=== PATIENT | female | born 1955 | race African-American/Black ===

== ENCOUNTER 2017-10-14 20:37 | Emergency (ER) | payer OTHER ==
--- NOTE | 2017-10-14 22:10 | ER ---
Nurse's Notes [facility] Name: Scooter Cavazos Age: 62 yrs Sex: Female : 1955 Arrival Date: 10/14/2017 Time: 20:40 Bed 19 Private MD: Damián Fragoso E Diagnosis: Rash and other nonspecific skin eruption Presentation: 10/14 20:49 Presenting complaint: Patient states: Reports itchy rash for 3 days. "I had scabies aj before and that's what I think it is. They gave me a pill last time.". Transition of care: patient was not received from another setting of care. Onset: The symptoms/episode began/occurred 3 day(s) ago. Anaphylaxis evaluation, no signs or symptoms of anaphylaxis were noted. Onset of symptoms was October 11, 2017. Risk Assessment: Do you want to hurt yourself or someone else? Patient reports no desire to harm self or others. Initial Sepsis Screen: Does the patient meet any 2 criteria? No. Patient's initial sepsis screen is negative. Does the patient have a suspected source of infection? No. Patient's initial sepsis screen is negative. Care prior to arrival: None. 20:49 Method Of Arrival: Ambulatory aj 20:49 Acuity: CHRIS 5 aj Triage Assessment: 20:51 General: Appears in no apparent distress. uncomfortable, Behavior is calm, cooperative, aj appropriate for age. Pain: Denies pain. Neuro: Level of Consciousness is awake, alert, obeys commands, Oriented to person, place, time, situation, Appropriate for age. Respiratory: Airway is patent Respiratory effort is even, unlabored, Respiratory pattern is regular, symmetrical. Derm: Skin is intact, is healthy with good turgor, Skin is pink, warm \\T\\ dry. normal, Rash noted that is itchy, on abdomen and right arm. Historical: - Allergies: 20:51 No Known Allergies; aj - Home Meds: 20:51 levothyroxine oral [Active]; Metformin Oral [Active]; gabapentin oral oral [Active]; aj - PMHx: 20:51 Diabetes - NIDDM; Hypothyroidism; aj - PSHx: 20:51 Cholecystectomy; Tubal ligation; aj - Immunization history:: Adult Immunizations up to date. - Social history:: Smoking status: Patient/guardian denies using tobacco. - Ebola Screening: : Patient negative for fever greater than or equal to 101.5 degrees Fahrenheit, and additional compatible Ebola Virus Disease symptoms Patient denies exposure to infectious person Patient denies travel to an Ebola-affected area in the 21 days before illness onset No symptoms or risks identified at this time. Screenin:33 Abuse screen: Denies threats or abuse. Denies injuries from another. Nutritional rv screening: No deficits noted. Tuberculosis screening: No symptoms or risk factors identified. Fall Risk None identified. Assessment: 21:30 General: Appears in no apparent distress. comfortable, Behavior is calm, cooperative. rv Pain: Denies pain. Neuro: Level of Consciousness is awake, alert, obeys commands, Oriented to person, place, time, situation. Cardiovascular: Capillary refill < 3 seconds. Respiratory: Airway is patent Breath sounds are clear bilaterally. GI: No signs and/or symptoms were reported involving the gastrointestinal system. : No signs and/or symptoms were reported regarding the genitourinary system. EENT: No signs and/or symptoms were reported regarding the EENT system. Derm: Rash noted that is itchy. Musculoskeletal: No signs and/or symptoms reported regarding the musculoskeletal system. Vital Signs: 20:51 BP 134 / 59; Pulse 78; Resp 16; Temp 97.2; Pulse Ox 98% on R/A; Weight 122.47 kg; aj Height 5 ft. 9 in. (175.26 cm); 21:31 BP 138 / 76; Pulse 72; Resp 16; Pulse Ox 99% on R/A; rv 20:51 Body Mass Index 39.87 (122.47 kg, 175.26 cm) aj ED Course: 20:40 Patient arrived in ED. es 20:40 Damián Fragoso MD is Private Physician. es 20:50 Triage completed. aj 20:52 Arm band placed on left wrist. Patient placed in an exam room, on a stretcher. aj 21:05 Valdemar Molina NP is PHCP. pm1 21:05 Obinna Durbin MD is Attending Physician. pm1 21:33 Patient has correct armband on for positive identification. Bed in low position. Call rv light in reach. Side rails up X 1. Adult w/ patient. Pulse ox on. NIBP on. 22:24 No provider procedures requiring assistance completed. Patient did not have IV access rv during this emergency room visit. Administered Medications: 22:15 Drug: Benadryl 25 mg Route: PO; rv 22:24 Follow up: Response: Medication administered at discharge. rv Outcome: : Discharge ordered by . pm1 : Discharged to home ambulatory. rv : Condition: good 22:25 Discharge instructions given to patient, Instructed on discharge instructions, medication usage. 22:25 Patient left the ED. rv Signatures: Ade Tobias, RN RN Edita Carmona Patrick, NP AUTOMOTIVE REFINISHER pm1 Loki Dotson RN RN rv
--- NOTE | 2017-10-14 22:10 | EDPHYS ---
Physician Documentation [facility] Name: Scooter Cavazos Age: 62 yrs Sex: Female : 1955 Arrival Date: 10/14/2017 Time: 20:40 Bed 19 Private MD: Damián Fragoso E ED Physician Obinna Durbin HPI: 10/14 22:00 This 62 yrs old Black Female presents to ER via Ambulatory with complaints of Itching. pm1 22:00 Onset: The symptoms/episode began/occurred yesterday. Associated signs and symptoms: pm1 Pertinent negatives: chest pain, dysuria, fever, shortness of breath, sore throat. Modifying factors: The patient symptoms are alleviated by nothing, the patient symptoms are aggravated by nothing. The patient has experienced a previous episode, many years ago, Similar to prior scabies dx. The patient has not recently seen a physician. Historical: - Allergies: 20:51 No Known Allergies; aj - Home Meds: 20:51 levothyroxine oral [Active]; Metformin Oral [Active]; gabapentin oral oral [Active]; aj - PMHx: 20:51 Diabetes - NIDDM; Hypothyroidism; aj - PSHx: 20:51 Cholecystectomy; Tubal ligation; aj - Immunization history:: Adult Immunizations up to date. - Social history:: Smoking status: Patient/guardian denies using tobacco. - Ebola Screening: : Patient negative for fever greater than or equal to 101.5 degrees Fahrenheit, and additional compatible Ebola Virus Disease symptoms Patient denies exposure to infectious person Patient denies travel to an Ebola-affected area in the 21 days before illness onset No symptoms or risks identified at this time. ROS: 22:00 Constitutional: Negative for fever, chills, and weight loss, Eyes: Negative for injury, pm1 pain, redness, and discharge, ENT: Negative for injury, pain, and discharge, Neck: Negative for injury, pain, and swelling, Cardiovascular: Negative for chest pain, palpitations, and edema, Respiratory: Negative for shortness of breath, cough, wheezing, and pleuritic chest pain, Abdomen/GI: Negative for abdominal pain, nausea, vomiting, diarrhea, and constipation, Back: Negative for injury and pain, : Negative for injury, bleeding, discharge, and swelling, MS/Extremity: Negative for injury and deformity. 22:00 Neuro: Negative for headache, weakness, numbness, tingling, and seizure. 22:00 Skin: Positive for Itchiness and rash on right arm. Exam: 22:00 Constitutional: This is a well developed, well nourished patient who is awake, alert, pm1 and in no acute distress. Head/Face: Normocephalic, atraumatic. Neck: Trachea midline, no thyromegaly or masses palpated, and no cervical lymphadenopathy. Supple, full range of motion without nuchal rigidity, or vertebral point tenderness. No Meningismus. Chest/axilla: Normal chest wall appearance and motion. Nontender with no deformity. No lesions are appreciated. Cardiovascular: Regular rate and rhythm with a normal S1 and S2. No gallops, murmurs, or rubs. Normal PMI, no JVD. No pulse deficits. Respiratory: Lungs have equal breath sounds bilaterally, clear to auscultation and percussion. No rales, rhonchi or wheezes noted. No increased work of breathing, no retractions or nasal flaring. Abdomen/GI: Soft, non-tender, with normal bowel sounds. No distension or tympany. No guarding or rebound. No evidence of tenderness throughout. Back: No spinal tenderness. No costovertebral tenderness. Full range of motion. 22:00 Skin: Appearance: normal except for affected area, consistent with scabies. Vital Signs: 20:51 BP 134 / 59; Pulse 78; Resp 16; Temp 97.2; Pulse Ox 98% on R/A; Weight 122.47 kg; aj Height 5 ft. 9 in. (175.26 cm); 21:31 BP 138 / 76; Pulse 72; Resp 16; Pulse Ox 99% on R/A; rv 20:51 Body Mass Index 39.87 (122.47 kg, 175.26 cm) aj MDM: 21:06 Patient medically screened. pm1 22:09 Data reviewed: vital signs. Data interpreted: Pulse oximetry: on room air is 99 %. pm1 Interpretation: normal. Counseling: I had a detailed discussion with the patient and/or guardian regarding: the historical points, exam findings, and any diagnostic results supporting the discharge/admit diagnosis, the need for outpatient follow up, to return to the emergency department if symptoms worsen or persist or if there are any questions or concerns that arise at home. Administered Medications: 22:15 Drug: Benadryl 25 mg Route: PO; rv 22:24 Follow up: Response: Medication administered at discharge. rv Disposition: 10/15 19:02 Co-signature as Attending Physician, Obinna Durbin MD. Disposition: 10/14/17 22:09 Discharged to Home. Impression: Rash and other nonspecific skin eruption. - Condition is Stable. - Discharge Instructions: Rash. - Prescriptions for Elimite 5 % Topical Cream - apply 1 application by TOPICAL route one time Wash after 12 hours.; 60 gram. Bactrim DS 800- 160 mg Oral Tablet - take 1 tablet by ORAL route every 12 hours for 10 days; 20 tablet. - Medication Reconciliation Form, Thank You Letter, Antibiotic Education form. - Follow up: Emergency Department; When: As needed; Reason: Worsening of condition. Follow up: Private Physician; When: 2 - 3 days; Reason: Recheck today's complaints, Continuance of care, Re-evaluation by your physician. - Problem is new. - Symptoms have improved. Signatures: Ade Tobias RN RN Valdemar Upton, TELEGRAPH OPERATOR TELEGRAPH OPERATOR pm1 Obinna Durbin MD MD Loki Dotson RN RN Corrections: (The following items were deleted from the chart) 10/14 22:25 22:09 10/14/2017 22:09 Discharged to Home. Impression: Rash and other nonspecific skin rv eruption. Condition is Stable. Forms are Medication Reconciliation Form, Thank You Letter, Antibiotic Education, Prescription Opioid Use. Follow up: Emergency Department; When: As needed; Reason: Worsening of condition. Follow up: Private Physician; When: 2 - 3 days; Reason: Recheck today's complaints, Continuance of care, Re-evaluation by your physician. Problem is new. Symptoms have improved. pm1
[2017-10-14] MEDS ORDERED: DIPHENHYDRAMINE 25 MG TAB/CAP ONE (22:17)
== END 2017-10-14 22:25 | disposition home or self-care (01) ==
LOC: ER 20:37
DX: R21 Rash and other nonspecific skin eruption (principal); E03.9 Hypothyroidism, unspecified; E11.9 Type 2 diabetes mellitus without complications; Z79.84 Long term (current) use of oral hypoglycemic drugs
CPT/HCPCS: 99283

== ENCOUNTER 2019-02-01 14:29 | Emergency (ER) | payer OTHER ==
[2019-02-01] MEDS ORDERED: FENTANYL CITR 100 MCG/2 ML ONE (16:07)
[2019-02-01 16:20] LABS: Protime INR 1.02
[2019-02-01 16:23] LABS: Absolute Lymphocytes (CBC) 1.1 K/uL (0.7-4.9); Basophils % 0.9 % (0-1.3); Lymphocytes % 16.2 % (15.3-44.8); MPV 9.6 fL (7.6-11.3)
[2019-02-01 16:37] LABS: ALT/SGPT 13 U/L (12-78); AST/SGOT 14 U/L (15-37); Albumin 3.5 g/dL (3.4-5.0); Alkaline Phosphatase 125 U/L (45-117); BUN Blood Urea Nitrogen 20 mg/dL (7-18); Bicarbonate 25 mmol/L (21-32); Bilirubin Direct < 0.1 mg/dL (0-0.2); Bilirubin Total 0.3 mg/dL (0.2-1.0); Glucose Level 233 mg/dL (74-106); Magnesium 1.9 mg/dL (1.8-2.4); NT PRO-BNP 124 pg/mL (<125); Potassium 4.4 mmol/L (3.5-5.1); Protein, Total 7.5 g/dL (6.4-8.2); Sodium Level 139 mmol/L (136-145); Troponin (Emerg Dept Use Only) < 0.02 ng/mL (0.0-0.045)
--- NOTE | 2019-02-01 16:48 | EDPHYS ---
Physician Documentation [facility] Name: Scooter Cavazos Age: 63 yrs Sex: Female : 1955 Arrival Date: 02/01/2019 Time: 14:32 Bed 5 Private MD: ED Physician Nirav Guzmán HPI: 02/01 15:17 This 63 yrs old Black Female presents to ER via Ambulatory with complaints of Shoulder jr8 Pain, Chest Wall Pain. 15:17 Associated signs and symptoms: Pertinent negatives: abdominal pain, diaphoresis, jr8 shortness of breath. Severity of symptoms: At their worst the symptoms were moderate, in the emergency department the symptoms are unchanged. Pt reports right shoulder and right sided chest pain for the last 3-4 days which has been worsening in severity, denies SOB. Historical: - Allergies: 14:37 No Known Allergies; aa5 - Home Meds: 14:37 levothyroxine oral [Active]; Metformin Oral [Active]; aa5 14:47 gabapentin Oral [Active]; tw2 - PMHx: 14:37 Diabetes - NIDDM; Hypothyroidism; aa5 - PSHx: 14:37 Cholecystectomy; Tubal ligation; aa5 - Immunization history:: Flu vaccine is up to date. - Social history:: Smoking status: Patient uses tobacco products, smokes one-half pack cigarettes per day. - Ebola Screening: : No symptoms or risks identified at this time. ROS: 15:17 Constitutional: Negative for fever, chills, and weight loss, Eyes: Negative for injury, jr8 pain, redness, and discharge, ENT: Negative for injury, pain, and discharge, Neck: Negative for injury, pain, and swelling, Abdomen/GI: Negative for abdominal pain, nausea, vomiting, diarrhea, and constipation, MS/Extremity: Negative for injury and deformity, Neuro: Negative for headache, weakness, numbness, tingling, and seizure. 15:17 Cardiovascular: Positive for chest pain, Negative for edema, orthopnea, palpitations. Exam: 15:19 Constitutional: This is a well developed, well nourished patient who is awake, alert, jr8 and in no acute distress. Head/Face: Normocephalic, atraumatic. Eyes: Pupils equal round and reactive to light, extra-ocular motions intact. Lids and lashes normal. Conjunctiva and sclera are non-icteric and not injected. Cornea within normal limits. Periorbital areas with no swelling, redness, or edema. ENT: Nares patent. No nasal discharge, no septal abnormalities noted. Tympanic membranes are normal and external auditory canals are clear. Oropharynx with no redness, swelling, or masses, exudates, or evidence of obstruction, uvula midline. Mucous membranes moist. Neck: Trachea midline, no thyromegaly or masses palpated, and no cervical lymphadenopathy. Supple, full range of motion without nuchal rigidity, or vertebral point tenderness. No Meningismus. Chest/axilla: Normal chest wall appearance and motion. Nontender with no deformity. No lesions are appreciated. Cardiovascular: Regular rate and rhythm with a normal S1 and S2. No gallops, murmurs, or rubs. Normal PMI, no JVD. No pulse deficits. Respiratory: Lungs have equal breath sounds bilaterally, clear to auscultation. No rales, rhonchi or wheezes noted. No increased work of breathing, no retractions or nasal flaring. Abdomen/GI: Soft, non-tender, with normal bowel sounds. No distension or tympany. No guarding or rebound. No evidence of tenderness throughout. Back: No spinal tenderness. No costovertebral tenderness. Full range of motion. MS/ Extremity: Pulses equal, no cyanosis. Neurovascular intact. Full, normal range of motion. Neuro: Awake and alert, GCS 15, oriented to person, place, time, and situation. Cranial nerves II-XII grossly intact. Motor strength 5/5 in all extremities. Sensory grossly intact. Cerebellar exam normal. Normal gait. Vital Signs: 14:37 BP 146 / 80; Pulse 84; Resp 18 S; Temp 97.4(TE); Pulse Ox 100% on R/A; Pain 10/10; aa5 15:40 BP 122 / 78; Pulse 75; Resp 17; Pulse Ox 96% on R/A; tw2 16:17 BP 122 / 84; Pulse 70; Resp 14; Temp 98.4; Pulse Ox 99% on R/A; Pain 10/10; ch 16:54 BP 131 / 85; Pulse 66; Resp 12; Pulse Ox 98% on R/A; tw2 MDM: 14:50 Patient medically screened. 8 16:46 Data reviewed: vital signs, nurses notes, lab test result(s), EKG, radiologic studies, jr8 plain films. Data interpreted: Pulse oximetry: on room air is 99 %. Interpretation: normal. Counseling: I had a detailed discussion with the patient and/or guardian regarding: the historical points, exam findings, and any diagnostic results supporting the discharge/admit diagnosis, lab results, radiology results, the need for outpatient follow up, a family practitioner, to return to the emergency department if symptoms worsen or persist or if there are any questions or concerns that arise at home. ED course: Patient doing well. No findings on imagine, ekg, or labs to suggest impending or past OR. All pain completely reproducible on exam. Wells score negative. Will try OTC medications to see how patient does. Return precautions given . 02/01 15:15 Order name: Basic Metabolic Panel; Complete Time: 16:40 02/01 15:15 Order name: CBC with Diff; Complete Time: 16:40 02/01 15:15 Order name: LFT's; Complete Time: 16:40 02/01 15:15 Order name: Magnesium; Complete Time: 16:40 02/01 15:15 Order name: NT PRO-BNP; Complete Time: 16:40 02/01 15:15 Order name: PT-INR; Complete Time: 16:40 02/01 15:15 Order name: Troponin (emerg Dept Use Only); Complete Time: 16:40 02/01 15:15 Order name: XRAY Chest (1 view) 02/01 15:15 Order name: EKG; Complete Time: 15:17 02/01 15:15 Order name: Cardiac monitoring; Complete Time: 16:18 02/01 15:15 Order name: EKG - Nurse/Tech; Complete Time: 16:18 02/01 15:15 Order name: IV Saline Lock; Complete Time: 16:18 02/01 15:15 Order name: Labs collected and sent; Complete Time: 16:18 02/01 15:15 Order name: O2 Per Protocol; Complete Time: 16:19 02/01 15:15 Order name: O2 Sat Monitoring; Complete Time: 16:19 Administered Medications: 16:18 Drug: fentaNYL (PF) 25 mcg Route: IVP; Site: right antecubital; 16:55 Follow up: Response: No adverse reaction; Pain is decreased; RASS: Alert and Calm (0) tw2 Disposition: 02/02 07:39 Co-signature as Attending Physician, Nirav Guzmán MD I agree with the assessment and maribeth plan of care. Disposition: 02/01/19 16:47 Discharged to Home. Impression: Myalgia, Other chest pain. - Condition is Stable. - Discharge Instructions: Nonspecific Chest Pain, Chest Wall Pain, Muscle Pain, Adult. - Medication Reconciliation Form, Thank You Letter, Antibiotic Education, Prescription Opioid Use form. - Follow up: Private Physician; When: 2 - 3 days; Reason: Recheck today's complaints, Continuance of care, Re-evaluation by your physician. - Problem is new. - Symptoms have improved. - Notes: Heating pad as needed over the counter lidoderm patches as needed Tylenol for pain NO NSAID BASED PRODUCTS Signatures: Dispatcher [employer] EDMS Stephany Hadley RN RN ch Anderson, Corey, MD MD cha Calderon, Audri RN RN aa5 Clemente Jones PA PA jr8 Lise James RN RN tw2 Corrections: (The following items were deleted from the chart) 02/01 16:47 16:47 02/01/2019 16:47 Discharged to Home. Impression: Myalgia. Condition is Stable. jr8 Forms are Medication Reconciliation Form, Thank You Letter, Antibiotic Education, Prescription Opioid Use. Follow up: Private Physician; When: 2 - 3 days; Reason: Recheck today's complaints, Continuance of care, Re-evaluation by your physician. Problem is new. Symptoms have improved. jr8 17:00 16:47 02/01/2019 16:47 Discharged to Home. Impression: Myalgia; Other chest pain. tw2 Condition is Stable. Forms are Medication Reconciliation Form, Thank You Letter, Antibiotic Education, Prescription Opioid Use. Follow up: Private Physician; When: 2 - 3 days; Reason: Recheck today's complaints, Continuance of care, Re-evaluation by your physician. Problem is new. Symptoms have improved. jr8
--- NOTE | 2019-02-01 16:48 | ER ---
Nurse's Notes [facility] Name: Scooter Cavazos Age: 63 yrs Sex: Female : 1955 Arrival Date: 02/01/2019 Time: 14:32 Bed 5 Private MD: Diagnosis: Myalgia;Other chest pain Presentation: 02/01 14:35 Presenting complaint: Patient states: right shoulder pain radiating to right side of aa5 chest that began 2-3 days ago. Pt denies injury. Transition of care: patient was not received from another setting of care. Onset of symptoms was January 2019. Risk Assessment: Do you want to hurt yourself or someone else? Patient reports no desire to harm self or others. Initial Sepsis Screen: Does the patient meet any 2 criteria? No. Patient's initial sepsis screen is negative. Does the patient have a suspected source of infection? No. Patient's initial sepsis screen is negative. Care prior to arrival: None. 14:35 Acuity: CHRIS 3 aa5 14:35 Method Of Arrival: Ambulatory aa5 Historical: - Allergies: 14:37 No Known Allergies; aa5 - Home Meds: 14:37 levothyroxine oral [Active]; Metformin Oral [Active]; aa5 14:47 gabapentin Oral [Active]; tw2 - PMHx: 14:37 Diabetes - NIDDM; Hypothyroidism; aa5 - PSHx: 14:37 Cholecystectomy; Tubal ligation; aa5 - Immunization history:: Flu vaccine is up to date. - Social history:: Smoking status: Patient uses tobacco products, smokes one-half pack cigarettes per day. - Ebola Screening: : No symptoms or risks identified at this time. Screenin:45 Abuse screen: Denies threats or abuse. Nutritional screening: No deficits noted. tw2 Tuberculosis screening: No symptoms or risk factors identified. Fall Risk None identified. Assessment: 14:46 Pain: Pain does not radiate. Pain began 2-3 days ago. Cardiovascular: Reports chest tw2 wall pain. 14:53 General: Appears in no apparent distress. obese, well groomed, Behavior is calm, tw2 cooperative, appropriate for age, pt states "oh i hope they dont want to do blood work or anything, i know i am not having a heart attack or anything, [place] in [place] it was really cold but i am having pain in my right upper chest and shoulder area". Pain: Complains of pain in right clavicle and anterior aspect of right upper chest. Neuro: Level of Consciousness is awake, alert, obeys commands, Oriented to person, place, time, situation. Cardiovascular: Heart tones S1 S2 Patient's skin is warm and dry. Respiratory: Airway is patent Respiratory effort is even, unlabored, Respiratory pattern is regular, symmetrical, Breath sounds are clear bilaterally. GI: No signs and/or symptoms were reported involving the gastrointestinal system. Abdomen is round non-distended, obese, Bowel sounds present X 4 quads. : No signs and/or symptoms were reported regarding the genitourinary system. EENT: No signs and/or symptoms were reported regarding the EENT system. Derm: No signs and/or symptoms reported regarding the dermatologic system. Musculoskeletal: Circulation, motion, and sensation intact. Range of motion: intact in all extremities, Reports pain in right clavicle and anterior aspect of right upper chest. 15:50 Reassessment: Patient appears in no apparent distress at this time. No changes from tw2 previously documented assessment. Patient and/or family updated on plan of care and expected duration. Pain level reassessed. Patient is alert, oriented x 3, equal unlabored respirations, skin warm/dry/pink. 16:17 Reassessment: Patient appears in no apparent distress at this time. No changes from ch previously documented assessment. Patient and/or family updated on plan of care and expected duration. Pain level reassessed. Patient is alert, oriented x 3, equal unlabored respirations, skin warm/dry/pink. 16:54 Reassessment: Patient appears in no apparent distress at this time. No changes from tw2 previously documented assessment. Patient and/or family updated on plan of care and expected duration. Pain level reassessed. Patient is alert, oriented x 3, equal unlabored respirations, skin warm/dry/pink. Vital Signs: 14:37 BP 146 / 80; Pulse 84; Resp 18 S; Temp 97.4(TE); Pulse Ox 100% on R/A; Pain 10/10; aa5 15:40 BP 122 / 78; Pulse 75; Resp 17; Pulse Ox 96% on R/A; tw2 16:17 BP 122 / 84; Pulse 70; Resp 14; Temp 98.4; Pulse Ox 99% on R/A; Pain 10/10; ch 16:54 BP 131 / 85; Pulse 66; Resp 12; Pulse Ox 98% on R/A; tw2 ED Course: 14:32 Patient arrived in ED. as 14:36 Triage completed. aa5 14:36 Arm band placed on. aa5 14:37 Bed in low position. Call light in reach. hall monitor on. Pulse ox on. NIBP on. tw2 14:[address] pt in room 5, Pt states "I got to go to my car and go get my aa5 phone". 14:45 Lise James RN is Primary Nurse. tw2 14:46 Patient maintains SpO2 saturation greater than 95% on room air. tw2 14:50 Clemente Jones PA is PHCP. jr8 14:50 Nirav Guzmán MD is Attending Physician. jr8 14:54 EKG done, by technical operations manager. reviewed by Nirav Guzmán MD. at1 15:00 Inserted saline lock: 22 gauge in right antecubital area, using aseptic technique. tw2 ,using aseptic technique. ALIRIO Martinez Blood collected. 15:54 XRAY Chest (1 view) In Process Unspecified. EDMS 16:17 Primary Nurse role handed off by Lise James RN 16:17 Stephany Hadley, ALIRIO is Primary Nurse. 16:59 No provider procedures requiring assistance completed. IV discontinued, intact, tw2 bleeding controlled, No redness/swelling at site. Pressure dressing applied. Administered Medications: 16:18 Drug: fentaNYL (PF) 25 mcg Route: IVP; Site: right antecubital; 16:55 Follow up: Response: No adverse reaction; Pain is decreased; RASS: Alert and Calm (0) tw2 Outcome: 16:47 Discharge ordered by . jr8 16:59 Discharged to home ambulatory. tw2 16:59 Condition: stable 16:59 Discharge instructions given to patient, Instructed on discharge instructions, follow up and referral plans. Demonstrated understanding of instructions, follow-up care. 17:00 Patient left the ED. tw2 Signatures: Dispatcher [employer] EDMS Stephany aHdley RN RN Jeanie Sorenson Audri, RN RN [facility] Clemente Jones PA PA jr8 Ade Layne, payroll auditor EKG Tat1 Lise James, RN RN tw2
--- NOTE | 2019-02-01 17:22 | RAD REPORT ---
EXAM DESCRIPTION: Ayush Single View02/01/2019 3:57 pm CLINICAL HISTORY: Chest pain COMPARISON: none FINDINGS: The lungs appear clear of acute infiltrate. The heart is normal size IMPRESSION: No acute abnormalities displayed
--- NOTE | 2019-02-01 18:25 | EKG ---
Test Date: 2019-02-01 Test Time: 14:47:05 Air Pollution Compliance Inspector: KRISTEN MEASUREMENT RESULTS: Intervals: Rate: 81 CT: 180 QRSD: 94 QT: 386 QTc: 448 [place]: P: 49 CT: 180 QRS: 33 T: 21 INTERPRETIVE STATEMENTS: Normal sinus rhythm Possible Left atrial enlargement RSR' or QR pattern in V1 suggests right ventricular conduction delay Nonspecific T wave abnormality Abnormal ECG Compared to ECG 10/22/2013 11:26:51 T-wave abnormality now present Electronically Signed On 02-01-19 18:24:36 CDT by Juan Patel
== END 2019-02-01 17:00 | disposition home or self-care (01) ==
LOC: ER 14:29
DX: R07.89 Other chest pain (principal); M79.10 Myalgia, unspecified site; E03.9 Hypothyroidism, unspecified; E11.9 Type 2 diabetes mellitus without complications; F17.210 Nicotine dependence, cigarettes, uncomplicated
CPT/HCPCS: 93005; 85025; 80048; 36415; 83735; 85610; 80076; 84484; 83880; 71045; 96374; 99285; J3010

== ENCOUNTER 2020-08-07 16:52 | Emergency (ER) | payer OTHER ==
--- OUTSIDE RECORDS SUMMARY | 2020-08-07 16:55 | XMS REPORT | Continuity of Care Document ---
:1955 Author Organization [facility] t Address [address] [place] [address] Care Team Providers Name Role Phone Tatyana Paige MD Primary Care Physician Problems Condition Condition Condition Status Onset Resolution Last Treating Co mments Source Name Details Category Date Date Treatment Clinician Date Stage 3 Stage 3 Disease Active 2017-[address] [facility] chronic chronic 2-10 [facility] kidney kidney 00:00: Medical disease disease 00 Center Reactive Reactive Disease [facility] depression depression 8-24 [facility] - 00:[facility]: Medical 00 Center Skin tags, Skin tags, Disease Active [facility] multiple multiple 11-18 [facility] - acquired acquired 00:00: Medica l 00 Center Other Other Disease Active [facility] specified specified 11-04 [facility] - hypothyroi hypothyroi 00:00: Me dical dism dism 00 Center Screening Screening Disease Active [facility] for STD for STD 11-04 [facility] - (sexually (sexually 00:00: Medi jassi transmitte transmitte 00 Ce nter d disease) d disease) Tobacco Tobacco Disease Active [facility] dependence dependence 7 [facility] kes - 00:00: Medical 00 Center Type 2 Type [address] [facility] diabetes diabetes 11-04 [facility] - mellitus mellitus 00:00: Medica l with with 00 Center hyperglyce hyperglyce rohith, with rohith, with long-term long-term current current use of use of insulin insulin Essential Essential Disease Active [facility] hypertensi hypertensi 11-04 Brooke [facility]es - on on 00:00: Medical Center Allergies, Adverse Reactions, Alerts This patient has no known allergies or adverse reactions. Social History Social Habit Start Date Stop Date Quantity Comments Source Sex Assigned At [facility] Cigarettes smoked 2018-03-31 2018-03-31 [facility] - current (pack per 00:00:00 00:00:00 [facility] Center day) - Reported Tobacco use and 2018-03-31 2018-03-[address] [facility] - exposure 00:00:00 00:00:00 [facility] Alcohol intake 2018-03-31 2018-03-31 Current drinker IMYA [facility]igh [facility] - 00:00:00 00:00:00 of alcohol [facility] (finding) Alcohol Comment 2017-11-04 2017-11-[address] Brooke kes - 00:00:00 00:00:00 [facility] Smoking Status Start Date Stop Date Source Current every day smoker 2018-03-31 00:00:00 [facility] Medications Ordered Filled Start Stop Current Ordering Indication Dosage Frequency Signature Comments Components Source Medication Medication Date Date Medication? Clinician (SIG) Name Name Gabapentin Gabapentin Yes Na Mohr [address] [facility] 7-15 [facility] - 00:00: [facility] 00 [facility] Glimepiride Glimepiride 2019- Yes Na Mohr [address] [facility] 7-15 with food [facility] - 00:00: [facility] 00 [facility] Abilify Abilify 2019-0 Yes Na Mohr 1/[address] [facility] 10-24 [facility] - 00:00: [facility] 00 [facility] Magnesium Magnesium 2019-0 2020- No Na Mohr [address] [facility] Oxide Oxide 10-24 as needed [facility] - 00:00: 00:00 [facility]oria 00 :00 [facility] lisinopril 2018- Yes Essential TAKE [address] [facility] (PRINIVIL,Z 6 hypertensio TABLET BY [facility] - ESTRIL) 40 00:00: n MOUTH Medica l MG tablet 00 EVERY DAY Cente r LANTUS Yes Type [address] [facility] SOLOSTAR 6-14 diabetes UNITS [facility] - U-100 00:00: mellitus SUBCUTANEO Me dical INSULIN 100 00 with USLY 2 Center unit/mL (3 hyperglycem TIMES mL) InPn ia, with DAILY FOR long-term 90 DAYS. current use of insulin ([facility]) methocarbam 2018- Yes Muscle TAKE [address] [facility] 4-27 spasm TABLET BY Carolyn - (ROBAXIN) 00:00: MOUTH 4 Medic al 500 MG 00 TIMES A Center tablet DAY NEEDED FOR MUSCLE SPASMS glucometer 2018- Yes Dispense [facility] (FREESTYLE) 4-04 one [facility] - Misc 00:00: blood-gluc Medical 00 ose Center monitor covered under insurance. blood sugar Yes Type [address] [facility] diagnostic 4-04 diabetes times [facility] - Strp 00:00: mellitus daily. Medical 00 with Center hyperglycem ia, with long-term current use of insulin ([facility]) atorvastati Yes Type [address] n (LIPITOR) 4-01 diabetes TABLET BY Carolyn - 80 MG 00:00: mellitus MOUTH Medical tablet 00 with EVERY DAY Center hyperglycem AT NIGHT ia, with long-term current use of insulin ([facility]) buPROPion Yes Reactive TAKE [address] (WELLBUTRIN 4-01 depression TABLET BY Carolyn - XL) 300 MG 00:00: MOUTH Medica l 24 hr 00 EVERY DAY Center tablet levothyroxi Yes Other TAKE [address] [facility] ne 4-01 specified TABLET BY Carolyn - (SYNTHROID, 00:00: hypothyroid MOUTH Medical LEVOTHROID) 00 ism EVERY DAY [facility] 150 MCG tablet metFORMIN Yes Type [address] [facility] (GLUCOPHAGE 3-19 diabetes TABLET BY Carolyn - ) 1000 MG 00:00: mellitus MOUTH Med ical tablet 00 with TWICE A Center hyperglycem DAY WITH ia, with BREAKFAST long-term AND DINNER current use of insulin ([facility]) lancets Yes P. [facility] Misc 7-18 [facility] - 00:00: Medical 00 Center pen needle, 2017- Yes Type [address] [facility] diabetic 31 7-13 diabetes Lantus pen [facility] - gauge x 00:00: mellitus as Medica l 09/08" Nd [address] hyperglycem . ia, with long-term current use of insulin (HCC) Lancets Lancets Yes Na Mohr as [facility] directed [facility] - (dispense Memoria lancets l for Outpati contour ent next bs Clinics monitor) Pen Clayton Pen Clayton Yes Na Mohr as [facility] Levothyroxi Levothyroxi Yes Na Mohr [address] [facility] ne Sodium ne Sodium in the [place] es - morning on Memoria an empty l stomach Outpati ent Clinics Lisinopril Lisinopril Yes Na Mohr [address] [facility] Atorvastati Atorvastati Yes Na Mohr [address] [facility] n Calcium n Calcium [facility] Lantus Lantus Yes Na Mohr as [facility] SoloStar SoloStar directed [facility] [facility] Methocarbam Methocarbam Yes Na Mohr [address] [facility] ol ol [facility] BusPIRone BusPIRone Yes Na Mohr [address] [facility] HCl HCl [facility] Metformin Metformin Yes Na Mohr [address] HCl HCl with a [facility] - meal [facility] Contour Contour Yes Na Mohr as [facility] Next Test Next Test directed L [facility] - [facility] ent Clinics Procedures This patient has no known procedures. Plan of Care Planned Activity Planned Date Details Comments Source Future Scheduled 2021-03-[address] - Test 00:00:00 (procedure) [code = [facility] Center 34682766] Future Scheduled 2020-12-[address] [facility] - Test 00:00:00 (Season Ended) [code = Medic al Center INFLUENZA VACCINE (Season Ended)] Future Scheduled 2018-09-[address] Brooke kes - Test 00:00:00 [facility] (procedure) [code = 38058977] Future Scheduled 2006 SHINGLES VACCINES ([address] [facility] - Test 00:00:00 of 2) [code = SHINGLES Medic md Center VACCINES (1 of 2)] Future Scheduled [address] [facility] - Test 00:00:00 [facility] cervix (procedure) [code = 998062243] Future Scheduled 1975-08-30 DTAP/TDAP/TD VACCINES [facility] - Test 00:00:00 (1 - Tdap) [code = Medical C enter DTAP/TDAP/TD VACCINES (1 - Tdap)] Future Scheduled [address] EYE EXAM [facility] - Test 00:00:00 [code = DIABETIC EYE Medical Center EXAM] Future Scheduled [address] [facility] - Test 00:00:00 examination Medical Center (regime/therapy) [code = 324594938] Future Scheduled 1966 Urine screening for [facility] - Test 00:00:00 protein (procedure) Medical Center [code = 870826495] Future Scheduled [address] [facility] - Test 00:00:00 0-64 YRS (1 of 1 - Medical C enter PPSV23) [code = PNEUMOCOCCAL VACCINE 0-64 YRS (1 of 1 - PPSV23)] Future Scheduled [address] [facility] - Test 00:00:00 [facility] breast (procedure) [code = 216693969] Future Scheduled [address] [facility] [facility] [place] [facility] - Test 00:00:00 [facility] colon (procedure) [code = 055571362] Encounters Start End Encounter Admission Attending Care Care Encounter Source Date/Time Date/Time Type Type Clinicians Facility Department ID 2020-07-09 2020-07-09 Outpatient [facility] [id number] [facility] 2020-07-08 2020-07-08 [facility] [id number] [facility] 2020-07-04 2020-07-04 [facility] [id number] [facility] 2020-07-03 2020-07-03 Outpatient [facility] [id number] [facility] 2020-07-03 2020-07-03 [facility] [id number] [facility] 2020-07-03 2020-07-03 Out[facility] [id number] [facility] 2020-03-27 2020-03-27 Out[facility] [id number] [facility] 2020-02-19 2020-02-19 Outpatient [facility] [id number] [facility] 2020-02-16 2020-02-16 Outpatient [facility] [id number] [facility] 2019-11-08 2019-11-08 [facility] [id number] [address] 09:40:00 09:40:[address] [facility] Medicine Outpati ent Clinics 2019-10-25 2019-10-25 [facility] [id number] 11:20:00 11:20:[address] [facility] Medicine Outpati ent Clinics Results This patient has no known results.
--- NOTE | 2020-08-07 18:24 | RAD REPORT ---
EXAM DESCRIPTION: RAD - Foot Right 3 View - 08/07/2020 6:04 pm CLINICAL HISTORY: Right foot pain FINDINGS: Subacute fracture involves the distal aspect of the fourth proximal phalanx which extends intraarticularly. Marked displacement of fracture fragments has worsened since a June 2020 exam No dislocation
--- NOTE | 2020-08-07 18:37 | EDPHYS ---
Physician Documentation [facility] Name: Scooter Cavazos Age: 64 yrs Sex: Female : 1955 Arrival Date: 08/07/2020 Time: 16:55 Bed 26 Private MD: Ellen Mohr ED Physician Janak Francois HPI: 08/07 19:42 This 64 yrs old Black Female presents to ER via Ambulatory with complaints of Foot Pain.kb 19:42 The patient has not experienced similar symptoms in the past. kb 19:43 The patient presents with an injury, pain, tenderness. The complaints affect the right kb fourth toe. Context: The problem was sustained at home, resulted from a heavy object falling, the patient can fully bear weight, the patient is able to ambulate. Onset: The symptoms/episode began/occurred 1 month(s) ago. Modifying factors: The symptoms are alleviated by nothing, the symptoms are aggravated by nothing. Associated signs and symptoms: The patient has no apparent associated signs or symptoms. Severity of symptoms: At their worst the symptoms were moderate, in the emergency department the symptoms are unchanged. The patient has not recently seen a physician. Pt reports fourth toe pain for one month. States she dropped a heavy object on it last month, came here for x-rays and was told it was fractured. Toe isn't getting better. Historical: - Allergies: 17:01 No Known Allergies; ll1 - PMHx: 17:01 Diabetes - NIDDM; Hypothyroidism; ll1 - PSHx: 17:01 Cholecystectomy; Tubal ligation; ll1 - Immunization history:: Client reports having NOT received the Covid vaccine. Flu vaccine is up to date. - Social history:: Smoking status: Patient reports the use of cigarette tobacco products, smokes one-half pack cigarettes per day. ROS: 19:42 Constitutional: Negative for fever, chills, and weight loss, Skin: Negative for injury, kb rash, and discoloration, Neuro: Negative for headache, weakness, numbness, tingling, and seizure. 19:42 MS/extremity: Positive for pain, swelling, tenderness, of the right fourth toe. Exam: 19:42 Constitutional: This is a well developed, well nourished patient who is awake, alert, kb and in no acute distress. Head/Face: Normocephalic, atraumatic. Skin: Warm, dry with normal turgor. Normal color. Neuro: Awake and alert, GCS 15, oriented to person, place, time, and situation. Moves all extremities. Normal gait. 19:42 Musculoskeletal/extremity: Extremities: grossly normal except: noted in the right fourth toe: pain, tenderness, ROM: limited active range of motion due to pain, in the right fourth toe, Circulation is intact in all extremities. Sensation intact. Weight bearing: able to fully bear weight. Vital Signs: 16:58 BP 154 / 91; Pulse 78; Resp 17; Temp 98.3; Pulse Ox 100% ; Weight 104.33 kg; Height 5 ll1 ft. 9 in. (175.26 cm); Pain 8/10; 17:35 BP 131 / 87 LA (auto/lg); Pulse 82; Resp 18 S; Pulse Ox 98% on R/A; Pain 7/10; jp3 16:58 Body Mass Index 33.96 (104.33 kg, 175.26 cm) ll1 MDM: 17:30 Patient medically screened. kb 18:02 Data reviewed: vital signs, nurses notes. Data interpreted: Pulse oximetry: on room air kb is 98 %. Interpretation: normal. 18:33 Counseling: I had a detailed discussion with the patient and/or guardian regarding: the kb historical points, exam findings, and any diagnostic results supporting the discharge/admit diagnosis, radiology results, the need for outpatient follow up, a orthopedic surgeon, to return to the emergency department if symptoms worsen or persist or if there are any questions or concerns that arise at home. 08/07 17:19 Order name: Foot Right 3 View; Complete Time: 18:32 EDMS Administered Medications: No medications were administered Disposition: 08/08 07:26 Co-signature as Attending Physician, Janak Francois MD I agree with the assessment and kdr plan of care. Disposition: 08/07/20 18:36 Discharged to Home. Impression: Displaced fracture of distal phalanx of right lesser toe(s). - Condition is Stable. - Discharge Instructions: Toe Fracture, [id number]. - Medication Reconciliation Form, Thank You Letter, Antibiotic Education, Prescription Opioid Use form. - Follow up: Emergency Department; When: As needed; Reason: Worsening of condition. Follow up: Private Physician; When: 2 - 3 days; Reason: Recheck today's complaints, Continuance of care, Re-evaluation by your physician. Signatures: Dispatcher [employer] EDMS Franci King, PLANER OPERATOR / GRADER-C PLANER OPERATOR / GRADER-Janak Wright MD MD [facility] Mi Haywood RN RN ss Jeremy Monsalve RN RN ll1 Corrections: (The following items were deleted from the chart) 08/07 18:47 18:36 08/07/2020 18:36 Discharged to Home. Impression: Displaced fracture of distal ss phalanx of right lesser toe(s). Condition is Stable. Forms are Medication Reconciliation Form, Thank You Letter, Antibiotic Education, Prescription Opioid Use. Follow up: Emergency Department; When: As needed; Reason: Worsening of condition. Follow up: Private Physician; When: 2 - 3 days; Reason: Recheck today's complaints, Continuance of care, Re-evaluation by your physician. kb
--- NOTE | 2020-08-07 18:37 | ER ---
Nurse's Notes [facility] Name: Scooter Cavazos Age: 64 yrs Sex: Female : 1955 Arrival Date: 08/07/2020 Time: 16:55 Bed 26 Private MD: Ellen Mohr Diagnosis: Displaced fracture of distal phalanx of right lesser toe(s) Presentation: 08/07 16:58 Chief complaint: Patient states: Broke R foot 4th digit 07/07. Still has pain to entire ll1 foot, even up back of heel area since. Coronavirus screen: Client denies travel out of the [place] in the last 14 days. At this time, the client does not indicate any symptoms associated with coronavirus-19. Ebola Screen: Patient denies travel to an Ebola-affected area in the 21 days before illness onset. Initial Sepsis Screen: Does the patient meet any 2 criteria? No. Patient's initial sepsis screen is negative. Does the patient have a suspected source of infection? Yes: Bone or joint infection. Risk Assessment: Do you want to hurt yourself or someone else? Patient reports no desire to harm self or others. Onset of symptoms was July 07, 2020. 16:58 Method Of Arrival: Ambulatory ll1 16:58 Acuity: CHRIS 4 ll1 Historical: - Allergies: 17:01 No Known Allergies; ll1 - PMHx: 17:01 Diabetes - NIDDM; Hypothyroidism; ll1 - PSHx: 17:01 Cholecystectomy; Tubal ligation; ll1 - Immunization history:: Client reports having NOT received the Covid vaccine. Flu vaccine is up to date. - Social history:: Smoking status: Patient reports the use of cigarette tobacco products, smokes one-half pack cigarettes per day. Screenin:45 Abuse screen: Denies threats or abuse. Denies injuries from another. Nutritional ss screening: No deficits noted. Tuberculosis screening: Never had TB. Fall Risk None identified. Assessment: 17:45 General: Appears in no apparent distress. comfortable, Behavior is calm, cooperative. ss Pain: Complains of pain in right fourth toe and Right fourth toenail Quality of pain is described as tender. Neuro: Level of Consciousness is awake, alert, obeys commands, Oriented to person, place, time, situation. Cardiovascular: Capillary refill < 3 seconds is brisk in bilateral fingers. Respiratory: Airway is patent Respiratory effort is even, unlabored, Respiratory pattern is regular, symmetrical. GI: No signs and/or symptoms were reported involving the gastrointestinal system. EENT: Nares are clear Oral mucosa is moist. Derm: Skin is intact, is healthy with good turgor, Skin is dry, Skin is pink, warm \T\ dry. normal. Vital Signs: 16:58 BP 154 / 91; Pulse 78; Resp 17; Temp 98.3; Pulse Ox 100% ; Weight 104.33 kg; Height 5 ll1 ft. 9 in. (175.26 cm); Pain 8/10; 17:35 BP 131 / 87 LA (auto/lg); Pulse 82; Resp 18 S; Pulse Ox 98% on R/A; Pain 7/10; jp3 16:58 Body Mass Index 33.96 (104.33 kg, 175.26 cm) ll1 ED Course: 16:55 Patient arrived in ED. mr 16:55 Ellen Mohr MD is Private Physician. mr 17:00 Triage completed. ll1 17:01 Arm band placed on. ll1 17:26 Franc[facility]C [facility]. kb 17:27 Janak Francois MD is Attending Physician. kb 17:36 Bed in low position. Call light in reach. Warm blanket given. Verbal reassurance given. jp3 foot propped up on some blankets. Pulse ox on. NIBP on. 17:36 Patient maintains SpO2 saturation greater than 95% on room air. jp3 17:45 No provider procedures requiring assistance completed. Patient did not have IV access ss during this emergency room visit. 18:04 Foot Right 3 View In Process Unspecified. EDMS 18:45 Mi Haywood, ALIRIO is Primary Nurse. ss Administered Medications: No medications were administered Outcome: 17:45 Discharged to home ambulatory. ss 17:45 Condition: good 17:45 Discharge instructions given to patient, Instructed on discharge instructions, follow up and referral plans. Demonstrated understanding of instructions, follow-up care, medications. 18:36 Discharge ordered by MD. kb 18:47 Patient left the ED. ss Signatures: Dispatcher [employer] EDMI Franci King FNP-C FNP-Radha QuinteroaMatilde mr Mi Haywood, RN RN ss Jae Lopez jp3 Jeremy Monsalve, RN RN ll1
[2020-08-07 19:12] VITALS: TEMP 98.3
[2020-08-07 19:13] VITALS: BP 131/87; O2SAT 98
== END 2020-08-07 18:47 | disposition home or self-care (01) ==
LOC: ER 16:52
DX: S92.531A Displaced fracture of distal phalanx of right lesser toe(s), initial encounter for closed fracture (principal); W22.8XXA Striking against or struck by other objects, initial encounter; Y93.89 Activity, other specified; Y92.009 Unspecified place in unspecified non-institutional (private) residence as the place of occurrence of the external cause; E11.9 Type 2 diabetes mellitus without complications; F17.210 Nicotine dependence, cigarettes, uncomplicated
CPT/HCPCS: 99284

== ENCOUNTER 2024-06-07 17:19 | Emergency (ER) | payer OTHER ==
--- NOTE | 2024-06-07 18:17 | RAD REPORT ---
EXAMINATION: XR RIGHT ANKLE CLINICAL INDICATION: . PAIN TECHNIQUE:Two view radiograph of the right ankle were obtained. COMPARISON: No prior exam. FINDINGS: Mild soft tissue swelling about the ankle. No acute fracture or dislocation. Small to mode rate posterior calcaneal spur.
--- NOTE | 2024-06-07 18:56 | RAD REPORT ---
EXAMINATION: US RIGHT LOWER EXTREMITY VENOUS DOPPLER CLINICAL INDICATION: Pain;Swelling RIGHT TECHNIQUE: Complete bilateral duplex sonography of the RIGHT lower extremity veins was performed. The examination included compression for vein patency, color Doppler imaging and flow augmentation in response to distal compression of the distal external iliac, common femoral, femoral, popliteal, tibi al, and great and small saphenous veins. COMPARISON: No prior exam. FINDINGS: Duplex sonography testing of the veins of the RIGHT lower extremity was performed. Color flow imaging shows all veins to be compressible with [id number] color filling. Pulsatile and phasic flow is present within all lower extremity deep and superficial veins examined. IMPRESSION: There is no deep vein or superficial vein thrombosis.
--- NOTE | 2024-06-07 19:15 | EDPHYS ---
Physician Documentation [facility] Name: Scooter Cavazos Age: 68 yrs Sex: Female : 1955 Arrival Date: 06/07/2024 Time: 17:19 Bed 20 Private MD: ED Physician Nirav Guzmán HPI: 06/07 22:16 This 68 yrs old Black Female presents to ER via Wheelchair with complaints of Foot Pain.kb 22:16 Pt is a 68 year old female who presents for pain to right ankle that started 4 days ago kb after trying to break in new shoes. States the pain radiates to right foot and up right calf when she walks. Denies injury or trauma. . Historical: - Allergies: 17:28 No Known Allergies; ll1 - PMHx: 17:28 Diabetes - NIDDM; Hypothyroidism; ll1 - Immunization history:: Adult Immunizations up to date. - Infectious Disease History:: Denies. - Social history:: Smoking status: Patient denies any tobacco usage or history of. ROS: 21:32 Constitutional: As per HPI kb Exam: 21:32 Constitutional: This is a well developed, well nourished patient who is awake, alert, kb and in no acute distress. Head/Face: Normocephalic, atraumatic. ENT: Moist Mucous membranes Cardiovascular: Regular rate Respiratory: Respirations even and unlabored. No increased work of breathing. Talking in full sentences Skin: Warm, dry with normal turgor. Normal color. Neuro: Awake and alert, GCS 15, oriented to person, place, time, and situation. 22:16 Musculoskeletal/extremity: Extremities: grossly normal except: noted in the right kb ankle: pain, swelling, ROM: intact in all extremities, Circulation is intact in all extremities. Sensation intact. Weight bearing: able to fully bear weight, Vital Signs: 17:33 Resp 17; Temp 97.9; Weight 117.93 kg; Height 5 ft. 9 in. ; Pain 10/10; ll1 17:34 BP 126 / 73; Pulse 75; Resp 18 S; Pulse Ox 100% on R/A; kc6 18:57 BP 104 / 65; Pulse 72; Resp 15 S; Pulse Ox 100% on R/A; kc6 17:33 Body Mass Index 38.39 (117.93 kg, 175.26 cm) ll1 17:33 Pain Scale: Adult ll1 MDM: 17:24 Medical Screening Exam initiated kb 22:16 Differential diagnosis: closed fracture, tendonitis, sprain, dvt. Data reviewed: vital kb signs, nurses notes. Counseling: I had a detailed discussion with the patient and/or guardian regarding the historical points, exam findings, and any diagnostic results supporting the discharge/admit diagnosis, radiology results, the need for outpatient follow up, a orthopedic surgeon, to return to the emergency department if symptoms worsen or persist or if there are any questions or concerns that arise at home. 06/07 17:33 Order name: Ankle Right 3 View XRAY; Complete Time: 18:20 kb 06/07 17:33 Order name: US Extremity Venous Unilateral Ltd; Complete Time: 18:59 kb 06/07 19:14 Order name: Reinaldo Wrap; Complete Time: 19:30 kb Administered Medications: No medications were administered Disposition Summary: 06/07/24 19:14 Discharge Ordered Notes: Location: Home kb Condition: Stable kb Diagnosis - Pain in right ankle and joints of right foot kb Followup: kb - With: Emergency Department - When: As needed - Reason: Worsening of condition Followup: kb - With: Private Physician - When: 2 - 3 days - Reason: Recheck today's complaints, Continuance of care, Re-evaluation by your physician Discharge Instructions: - Discharge Summary Sheet kb - Musculoskeletal Pain kb - Ankle Sprain, [id number] kb Forms: - Medication Reconciliation Form kb - Antibiotic Education kb - Prescription Opioid Use kb - Patient Portal Instructions kb - Leadership Thank You Letter kb Prescriptions: - Diclofenac Sodium 75 mg Oral tablet, delayed release (enteric coated) - take 1 tablet ORAL route 2 times per day As needed; 30 tablet; Refills: 0, kb Product Selection Permitted Addendum: 06/11/2024 08:51 Co-signature as Attending Physician, Nirav Guzmán MD I agree with the assessment and c oshea plan of care. Signatures: Dispatcher [employer] Franci Wren, ANGEL-C READING COACH-Nirav Smith MD MD cha Lewis, Lynsay, RN RN ll1 Corrections: (The following items were deleted from the chart) 06/07 22:16 21:32 Constitutional: This is a well developed, well nourished patient who is awake, kb alert, and in no acute distress. Head/Face: Normocephalic, atraumatic. ENT: Moist Mucous membranes Cardiovascular: Regular rate Respiratory: Respirations even and unlabored. No increased work of breathing. Talking in full sentences Skin: Warm, dry with normal turgor. Normal color. Neuro: Awake and alert, GCS 15, oriented to person, place, time, and situation. kb
--- NOTE | 2024-06-07 19:15 | ER ---
Nurse's Notes [facility] Name: Scooter Cavazos Age: 68 yrs Sex: Female : 1955 Arrival Date: 06/07/2024 Time: 17:19 Bed 20 Private MD: Diagnosis: Pain in right ankle and joints of right foot Presentation: 06/07 17:33 Chief complaint: Patient states: R foot and ankle pain for 4 days after wearing new ll1 shoes. No trauma or falls. Coronavirus screen: Client denies travel out of the [place] in the last 14 days. At this time, the client does not indicate any symptoms associated with coronavirus-19. Ebola Screen: Patient denies travel to an Ebola-affected area in the 21 days before illness onset. Initial Sepsis Screen: Does the patient meet any 2 criteria? No. Patient's initial sepsis screen is negative. Does the patient have a suspected source of infection? No. Patient's initial sepsis screen is negative. Risk Assessment: Do you want to hurt yourself or someone else? Patient reports no desire to harm self or others. Onset of symptoms was June 04, 2024. 17:33 Method Of Arrival: Wheelchair ll1 17:33 Acuity: CHRIS 3 ll1 Triage Assessment: 17:34 General: Appears uncomfortable, Behavior is calm, cooperative, appropriate for age. ll1 Pain: Complains of pain in right foot Pain radiates to right leg. Musculoskeletal: Reports pain in right foot and right leg. Historical: - Allergies: 17:28 No Known Allergies; ll1 - PMHx: 17:28 Diabetes - NIDDM; Hypothyroidism; ll1 - Immunization history:: Adult Immunizations up to date. - Infectious Disease History:: Denies. - Social history:: Smoking status: Patient denies any tobacco usage or history of. Screenin:33 [facility] ED Fall Risk Assessment (Adult) History of falling in the last 3 months, kc6 including since admission No falls in past 3 months (0 pts) Confusion or Disorientation No (0 pts) Intoxicated or Sedated No (0 pts) Impaired Gait No (0 pts) Mobility Assist Device Used No (0 pt) Altered Elimination No (0 pt) Score/Fall Risk Level 0 - 2 = Low Risk Oriented to surroundings, Maintained a safe environment, Educated pt \T\ family on fall prevention, incl call for assistance when getting out of bed. Abuse screen: Denies threats or abuse. Denies injuries from another. Nutritional screening: No deficits noted. Tuberculosis screening: No symptoms or risk factors identified. Assessment: 18:09 General: Appears in no apparent distress. comfortable, well groomed, well developed, kc6 Behavior is calm, cooperative, appropriate for age. Pain: Complains of pain in right foot. Neuro: Level of Consciousness is awake, alert, obeys commands, Oriented to person, place, time, situation, Appropriate for age. Cardiovascular: Capillary refill < 3 seconds. Respiratory: Airway is patent Trachea midline Respiratory effort is even, unlabored, Respiratory pattern is regular, symmetrical. GI: No signs and/or symptoms were reported involving the gastrointestinal system. : No signs and/or symptoms were reported regarding the genitourinary system. EENT: No signs and/or symptoms were reported regarding the EENT system. Derm: No signs and/or symptoms reported regarding the dermatologic system. Skin is intact, is healthy with good turgor, Skin is pink, warm \T\ dry. Musculoskeletal: Circulation, motion, and sensation intact. Range of motion: intact in all extremities. 18:57 Reassessment: Patient appears in no apparent distress at this time. No changes from kc6 previously documented assessment. Patient and/or family updated on plan of care and expected duration. Pain level reassessed. Patient is alert, oriented x 3, equal unlabored respirations, skin warm/dry/pink. 19:19 Reassessment: Pt alert and oriented, denies SOB, CP ,N/V, no distress noted. upper and ay lower extremities pulses normal. Vital Signs: 17:33 Resp 17; Temp 97.9; Weight 117.93 kg; Height 5 ft. 9 in. ; Pain 10/10; ll1 17:34 BP 126 / 73; Pulse 75; Resp 18 S; Pulse Ox 100% on R/A; kc6 18:57 BP 104 / 65; Pulse 72; Resp 15 S; Pulse Ox 100% on R/A; kc6 17:33 Body Mass Index 38.39 (117.93 kg, 175.26 cm) ll1 17:33 Pain Scale: Adult ll1 ED Course: 17:23 Patient arrived in ED. im 17:24 Franci King FNP-C is [facility]. kb 17:24 Nirav Guzmán MD is Attending Physician. kb 17:27 Marely Eastman, RN is Primary Nurse. kc6 17:28 Arm band placed on Patient placed in an exam room, on a stretcher. ll1 17:33 Patient has correct armband on for positive identification. Bed in low position. Call kc6 light in reach. Side rails up X 1. Pulse ox on. NIBP on. Door closed. Noise minimized. Lights dimmed. Pillow given. 17:34 Triage completed. ll1 17:34 Patient maintains SpO2 saturation greater than 95% on room air. kc6 18:13 Ankle Right 3 View XRAY In Process Unspecified. EDMS 18:52 US Extremity Venous Unilateral Ltd In Process Unspecified. EDMS 19:06 Report given to ALIRIO Ferguson. kc6 19:19 No provider procedures requiring assistance completed. Patient did not have IV access ay during this emergency room visit. Administered Medications: No medications were administered Outcome: 19:14 Discharge ordered by MD. kb 19:19 Discharged to home ambulatory, ay 19:19 Condition: stable 19:19 Discharge instructions given to patient, Instructed on discharge instructions, follow up and referral plans. medication usage, Demonstrated understanding of instructions, follow-up care, medications, Prescriptions given X 1, 19:30 Patient left the ED. ay Signatures: Dispatcher [employer] EDOR Franci King FNP-C SKILLED NURSING PROFESSIONAL-CkJeremy Jordan RN RN ll1 Vanessa Vega RN RN [email or web address] Marely Eastman, RN RN Malena Hewitt Awudu, RN RN ay Corrections: (The following items were deleted from the chart) 19:05 19:04 Report given to ALIRIO Ferguson1 ld1
[2024-06-07 19:35] VITALS: TEMP 97.9
[2024-06-07 19:37] VITALS: O2SAT 100
[2024-06-07 19:38] VITALS: BP 104/65
== END 2024-06-07 19:30 | disposition home or self-care (01) ==
LOC: ER 17:19
DX: M25.571 Pain in right ankle and joints of right foot (principal)
CPT/HCPCS: 93971; 99283